=== PATIENT | male | born 1990 | race Caucasian/White ===

== ENCOUNTER 2023-02-03 17:11 | Emergency (ER) | payer OTHER ==
[2023-02-03 17:27] VITALS: BP 132/81; PULSE 86; RESP 18; TEMP 98.9; BMI 29.8
[2023-02-03] MEDS ORDERED: DIPHTH,PERTUSS(ACELL),TET 0.5 ML DISP.SYRIN IM ONE ×2 (17:49→18:03)
[2023-02-03] MEDS ORDERED: predniSONE 20 MG TABLET (UD) PO ONE (18:26)
[2023-02-03] MEDS ORDERED: predniSONE 20 MG TABLET (UD) ONE (18:30)
== END 2023-02-03 18:38 | disposition home or self-care (01) ==
LOC: JER 17:11
PROC: 3E0234Z Introduction of Serum, Toxoid and Vaccine into Muscle, Percutaneous Approach (ICD-10-PCS; principal; 2023-02-03)
DX: R21 Rash and other nonspecific skin eruption (principal)
CPT/HCPCS: 90471; 90715; 99283-25